=== PATIENT | male | born 1990 | race Caucasian/White ===

== ENCOUNTER 2022-01-28 16:56 | Emergency (ER) | payer OTHER ==
[2022-01-28 17:04] VITALS: BP 125/78; PULSE 77; RESP 19; TEMP 98.6; BMI 33.7
[2022-01-28] MEDS ORDERED: METHOCARBAMOL 500 MG TABLET PO ONE (17:27)
[2022-01-28] MEDS ORDERED: KETOROLAC TROMETHAMINE 30 MG/1 ML VIAL IM ONE (17:27)
[2022-01-28] MEDS ORDERED: KETOROLAC TROMETHAMINE 30 MG/1 ML VIAL ONE ×2 (17:35)
== END 2022-01-28 17:47 | disposition home or self-care (01) ==
LOC: JERFT 16:56
DX: S09.90XA Unspecified injury of head, initial encounter (principal); M54.2 Cervicalgia; V49.40XA Driver injured in collision with unspecified motor vehicles in traffic accident, initial encounter
CPT/HCPCS: 99281-25